=== PATIENT | female | born 1940 | race Caucasian/White ===

== ENCOUNTER → 2021-09-28 | Outpatient (CLI) | payer MEDICARE, BC ==
[~2021-09-28] MED LIST: MIRALAX17 GM PO
== END ==
LOC: EMI 10:16
DX: R41.0 Disorientation, unspecified (principal); R90.82 White matter disease, unspecified; G31.9 Degenerative disease of nervous system, unspecified
CPT/HCPCS: 70553; A9577

== ENCOUNTER → 2021-11-23 | Outpatient (CLI) | payer MEDICARE, BC | LOC: ECHO 10:00 | DX: R06.89 Other abnormalities of breathing (principal) | CPT/HCPCS: ECHO; 93306 ==